=== PATIENT | female | born 1955 | race Caucasian/White ===

== ENCOUNTER → 2023-05-06 | Outpatient (CLI) | payer MEDICARE, OTHER ==
--- NOTE | 2023-05-07 09:46 | BD ---
EXAMINATION TYPE: Axial Bone Density DATE OF EXAM: 05/06/2023 CLINICAL HISTORY: 67 years old Female. ICD-10 CODE: Z78.0 ASYMPTOMATIC MENOPAUSAL STATE Height: 63.75in Weight: 143lb FRAX RISK QUESTIONS: Family History (Parent hip fracture): yes Secondary Osteoporosis: RISK FACTORS HISTORY OF: MEDICATIONS: EXAM MEASUREMENTS: Bone mineral densitometry was performed using the Thomas-Krenn System. Bone mineral density as measured about the Lumbar spine is: ----- L1-L4(G/cm2): 0.788 T Score Values are as follows: ----- L1: -2.2 ----- L2: -3.4 ----- L3: -3.9 ----- L4: -3.5 ----- L1-L4: -3.3 Z Score Values are as follows: ----- L1: -0.6 ----- L2: -1.8 ----- L3: -2.3 ----- L4: -1.9 ----- L1-L4: -1.7 First dexa at [facility] Bone mineral density about the R hip (g/cm2): 0.654 Bone mineral density about the L hip (g/cm2): 0.653 T Score values are as follows: -----R Neck: -2.5 -----L Neck: -2.5 -----R Total: -2.8 -----L Total: -2.8 Z Score values are as follows: -----R Neck: -1.0 -----L Neck: -1.0 -----R Total: -1.6 -----L Total: -1.6 FRAX%s: The graph provided illustrates a 23.7% chance for a major osteoporotic fx and a 3.6% chance f or the hips probability for fx in 10 years time. IMPRESSION: Osteoporosis (T Score less than -2.5). There is increased fracture risk and therapy is usually indicated based on age. Re-Screen 1-2 years. NOTE: T-SCORE=SD OF THE YOUNG ADULT MEAN.
== END | disposition home or self-care (01) ==
LOC: RADBDWWP 13:03
PROVIDERS: ATTEND Family Medicine
DX: M81.0 Age-related osteoporosis without current pathological fracture (principal); Z78.0 Asymptomatic menopausal state
CPT/HCPCS: 77080

== ENCOUNTER → 2023-06-11 | Outpatient (CLI) | payer MEDICARE, OTHER | END | disposition home or self-care (01) | LOC: LABWHC1 09:28 | PROVIDERS: ATTEND Family Medicine | DX: M81.0 Age-related osteoporosis without current pathological fracture (principal) | CPT/HCPCS: 36415; 82330; 83970 ==

== ENCOUNTER → 2023-07-02 | Outpatient (CLI) | payer MEDICARE, OTHER ==
[2023-07-02] MEDS: DENOSUMAB 60 MG/ML 1 ML SYRINGE SQ NR (13:47)
[2023-07-02 14:53] VITALS: BP 146/76; PULSE 69; RESP 16; TEMP 98.5
== END ==
LOC: PROCWHC3 13:29
PROVIDERS: ATTEND Family Medicine
DX: M81.0 Age-related osteoporosis without current pathological fracture (principal)
CPT/HCPCS: 96372; J0897

== ENCOUNTER → 2024-01-03 | Outpatient (CLI) | payer MEDICARE, OTHER ==
[2024-01-03 13:27] VITALS: BP 143/84; PULSE 71; RESP 16; TEMP 97.5
[2024-01-03] MEDS: DENOSUMAB 60 MG/ML 1 ML SYRINGE SQ NR (13:28)
== END | disposition home or self-care (01) ==
LOC: PROCWHC3 13:20
PROVIDERS: ATTEND Family Medicine
DX: M81.0 Age-related osteoporosis without current pathological fracture (principal)
CPT/HCPCS: 96372

== ENCOUNTER 2024-04-07 11:52 | Day surgery (SDC) | payer MEDICARE, OTHER ==
[~2024-04-07 11:52] MED LIST: LACTATED RINGERS 1,000 ML IV SCH
[2024-04-07 13:03] VITALS: TEMP 98.9
[2024-04-07] MEDS: SODIUM CHLORIDE 0.9% 1,000 ML IV ONE (13:03)
[2024-04-07] MEDS: LIDOCAINE 1% (10MG/ML) FOR IV START INTRADERMA STA (13:10)
[2024-04-07] MEDS ORDERED: PROPOFOL 10 MG/ML 20 ML VIAL IV ONE (13:26)
--- NOTE | 2024-04-07 13:45 | P.PCN ---
Date of Procedure: 04/07/24 Procedure(s) Performed: BRIEF HISTORY: Patient is a 68-year-old pleasant white female scheduled for an elective colonoscopy as a part of screening for colon cancer. PROCEDURE PERFORMED: Colonoscopy. PREOPERATIVE DIAGNOSIS: Screening for colon cancer. IV sedation per Anesthesia. PROCEDURE: After informed consent was obtained, the patient, was brought into the endoscopy unit. IV sedation was administered by Anesthesia under continuous monitoring. Digital rectal examination was normal. Initially the Olympus CF-160 flexible video colonoscope was then inserted in the rectum, gradually advanced into the cecum without any difficulty. Careful examination was performed as the scope was gradually being withdrawn. Ileocecal valve and the appendiceal orifice were visualized and appeared normal. Prep was excellent. Mucosa of the cecum, ascending colon, transverse colon, descending colon, sigmoid colon, and rectum appeared normal. Moderate sigmoid diverticulosis. Retroflexion was performed in the rectum and no lesions were seen. The patient tolerated the procedure well. IMPRESSION: Normal-appearing colon from rectum to cecum with no evidence of colorectal neoplasia Moderate sigmoid diverticulosis.. RECOMMENDATIONS: Findings of this examination were discussed with the patient as well as her family.. He was advised to have repeat screening colonoscopy in 10 years
[2024-04-07 14:07] VITALS: BP 128/71; PULSE 86; RESP 17
== END 2024-04-07 14:55 | disposition home or self-care (01) ==
LOC: ORWHC2ENDO 11:52
PROVIDERS: ATTEND Internal Medicine Gastroenterology
DX: Z12.11 Encounter for screening for malignant neoplasm of colon (principal); K57.30 Diverticulosis of large intestine without perforation or abscess without bleeding; I10 Essential (primary) hypertension; E78.5 Hyperlipidemia, unspecified; M81.0 Age-related osteoporosis without current pathological fracture; Z79.899 Other long term (current) drug therapy
CPT/HCPCS: J2704; G0121

== ENCOUNTER → 2024-07-10 | Outpatient (CLI) | payer MEDICARE, OTHER ==
[2024-07-10 13:19] VITALS: BP 134/71; PULSE 71; RESP 16; TEMP 98.2
[2024-07-10] MEDS: DENOSUMAB 60 MG/ML 1 ML SYRINGE SQ NR (13:26)
== END ==
LOC: PROCWHC3 12:59
PROVIDERS: ATTEND Family Medicine
DX: M81.0 Age-related osteoporosis without current pathological fracture (principal)
CPT/HCPCS: 96372; J0897